=== PATIENT | male | born 1980 | race African-American/Black ===

== ENCOUNTER 2024-04-05 04:32 | Emergency (ER) | payer BC, OTHER ==
[2024-04-05] MEDS ORDERED: Amoxicillin/Potassium Clav 875 MG TAB ONE (04:47)
[2024-04-05] MEDS ORDERED: HYDROcodone/Acetaminophen 5/325 mg Tablet ONE (04:47)
== END 2024-04-05 04:51 | disposition home or self-care (01) ==
LOC: CSHERS 04:32
DX: H66.41 Suppurative otitis media, unspecified, right ear (principal); I10 Essential (primary) hypertension
CPT/HCPCS: 99282